=== PATIENT | male | born 1995 | race Caucasian/White ===

== ENCOUNTER 2021-06-08 17:01 | Emergency (ER) | payer SELFPAY ==
[~2021-06-08] VITALS: Ht 167.6 cm; Wt 86.2 kg
[2021-06-08 17:33] VITALS: BP 136/87
[2021-06-08] MEDS ORDERED: FLUORESCEIN SODIUM OPHTH 1 EA STRIP ONE (17:46)
[2021-06-08] MEDS ORDERED: IBUP-1955 PO (18:51)
[2021-06-08] MEDS ORDERED: HYDR-4209 PO (18:51)
[2021-06-08] MEDS ORDERED: HYDROCODONE/APAP 5/325MG TABLET PO ONE (19:00)
[2021-06-08] MEDS ORDERED: HYDROCODONE/APAP 5/325MG TABLET ONE (19:19)
== END 2021-06-08 19:20 | disposition home or self-care (01) ==
LOC: ER 17:10
DX: B02.9 Zoster without complications (principal)